=== PATIENT | male | born 1995 | race African-American/Black ===

== ENCOUNTER 2023-08-07 22:07 | Emergency (ER) | payer OTHER, MEDICAID ==
[~2023-08-07] VITALS: Ht 170.2 cm; Wt 69.0 kg
[2023-08-07 22:27] VITALS: O2SAT 68
[2023-08-07 23:05] LABS: BASOPHILS % 0.5 % (0.0-2.0); EOSINOPHILS % 3.1 % (0.0-5.0); HEMATOCRIT. 45.5 % (42.0-52.0); HEMOGLOBIN. 15.6 g/dL (14.0-18.0); LYMPHOCYTES % 31.7 % (20.0-50.0); MEAN CORPUSCULAR HEMOGLOBIN 29.2 pg (28.0-32.0); MEAN CORPUSCULAR HGB CONC 34.4 g/dL (31.0-37.0); MEAN CORPUSCULAR VOLUME 84.8 fL (80.0-94.0); MEAN PLATELET VOLUME 8.6 fl (7.4-10.4); MONOCYTES % 8.8 % (2.0-8.0); NEUTROPHILS % 55.9 % (40.0-76.0); PLATELET 221 x1000/uL (130-400); RED BLOOD CELL COUNT 5.36 mill/uL (4.7-6.1); RED CELL DISTRIBUTION WIDTH 13.3 % (11.6-14.6); WHITE BLOOD COUNT 7.9 x1000/uL (4.5-11.0)
[2023-08-07 23:17] LABS: CHLORIDE 109 mEq/L (98-107); POTASSIUM 4.3 mEq/L (3.5-5.1); SODIUM 140 mEq/L (136-145)
[2023-08-07 23:18] LABS: CALCIUM 9.4 mg/dL (8.7-10.4); CARBON DIOXIDE 26 mEq/L (21-32)
[2023-08-07 23:23] LABS: CREATININE 1.1 mg/dL (0.6-1.3); GLUCOSE 93 mg/dL (70-105); UREA NITROGEN BLOOD 9 mg/dL (9-23)
[2023-08-07 23:25] LABS: ALANINE AMINOTRANSFERASE 11 IU/L (10-49); ALBUMIN 4.5 g/dL (3.2-4.8); ASPARTATE AMINOTRANSFERASE 14 IU/L (<34); BILIRUBIN TOTAL 0.4 mg/dL (0.1-1.0); PROTEIN TOTAL 6.6 g/dL (6.0-8.3)
[2023-08-07] MEDS ORDERED: LOPE1TAB46 MT (23:37)
[2023-08-07] MEDS ORDERED: ONDA4TAB50 MT (23:37)
[2023-08-07 23:45] VITALS: BP 118/62; PULSE 50; RESP 14; TEMP 97
== END 2023-08-07 23:50 | disposition home or self-care (01) ==
LOC: ER 22:07
DX: K52.9 Noninfective gastroenteritis and colitis, unspecified (principal); F12.90 Cannabis use, unspecified, uncomplicated; Z79.899 Other long term (current) drug therapy
CPT/HCPCS: 36415; 80053; 85025; 99283

== ENCOUNTER 2023-11-11 21:00 | Emergency (ER) | payer MEDICAID, OTHER ==
[~2023-11-11] VITALS: Ht 170.2 cm; Wt 68.0 kg
[~2023-11-11 21:00] MED LIST: LOPE1TAB46 MT; ONDA4TAB50 MT
[2023-11-11 21:18] VITALS: O2SAT 100
[2023-11-11] MEDS: DEXAMETHASONE 10 MG/ML VIAL PO ONE (22:20)
[2023-11-11 23:45] VITALS: BP 138/71; PULSE 60; RESP 18; TEMP 36.66960; O2SAT 100
== END 2023-11-11 23:47 | disposition home or self-care (01) ==
LOC: ER 21:00
DX: J02.9 Acute pharyngitis, unspecified (principal)
CPT/HCPCS: 99283; 87430; 87070; J1100